=== PATIENT | female | born 1950 | race Caucasian/White ===

== ENCOUNTER → 2017-09-04 15:00 | Outpatient (CLI) | payer MEDICARE, OTHER, SELFPAY | PROVIDERS: Visit Provider Physician Assistant | DX: N39.0 Urinary tract infection, site not specified (principal) | CPT/HCPCS: 87077; 87086; 87186 ==

== ENCOUNTER → 2018-03-28 08:11 | Outpatient (CLI) | payer MEDICARE, OTHER, SELFPAY ==
[2018-03-28 09:29] LABS: BUN Creatinine Ratio 23.3 (6-22); Blood Urea Nitrogen 21 mg/dL (7-17); Calcium 9.1 mg/dL (8.4-10.2); Carbon Dioxide 28 mmol/L (22-32); Chloride 102 mmol/L (98-107); Cholesterol 211 mg/dL (140-199); Estimated Glomerular Filt Rate > 60.0 mL/min (>60); Glucose 79 mg/dL (80-110); HDL Cholesterol 93 mg/dL (40-60); HEMOLYSIS < 15 (0-50); LDL Cholesterol Calculated 104 mg/dL (<100); Potassium 4.4 mmol/L (3.4-5.1); Sodium 139 mmol/L (137-145); Triglycerides 72 mg/dL (35-150)
[2018-03-28 10:15] LABS: Creatinine Urine Random 138.2 mg/dL
[2018-03-28 10:17] LABS: Microalbumin Urine Random 0.7 mg/dL (0-1.6)
== END ==
PROVIDERS: Visit Provider Family Medicine
DX: I10 Essential (primary) hypertension (principal)
CPT/HCPCS: 36415; 80048; 80061; 82043; 82570

== ENCOUNTER → 2018-07-11 14:21 | Outpatient (CLI) | payer MEDICARE, OTHER, SELFPAY ==
--- NOTE | 2018-07-11 14:23 | DI.RAD.S_ITS ---
PROCEDURE: XR CERVICAL SPINE 2V OR 3V INDICATIONS: neck pain TECHNIQUE: 3 view(s) of the cervical spine were acquired. COMPARISON: None. FINDINGS: Bones: No fractures or dislocations to the T1 level. The lateral masses of C1 appear intact on the odontoid view. No suspicious bony lesions. Multilevel degenerative endplate sclerosis and spurring. Diffuse facet arthropathy. Straightening of the normal cervical lordosis. Moderate narrowing of the C4-C5 and C5-C6 disc spaces. There is mild narrowing of the remaining cervical disc spaces. Grade 1 anterolisthesis of C7 on T1 Soft tissues: No prevertebral soft tissue swelling. IMPRESSION: Diffuse cervical spondylosis and facet arthropathy most pronounced at C4-C5 and C5-C6. Grade 1 anterolisthesis of C7 on T1. Straightening of the normal cervical lordosis. Dictated by: Mane Ding M.D. on 07/11/2018 at 15:51 Approved by: Mane Ding M.D. on 07/11/2018 at 15:53
== END ==
PROVIDERS: PCP Family Medicine; Visit Provider Registered Nurse
DX: M54.2 Cervicalgia (principal); M47.812 Spondylosis without myelopathy or radiculopathy, cervical region; M43.13 Spondylolisthesis, cervicothoracic region
CPT/HCPCS: 72040

== ENCOUNTER → 2018-07-23 08:11 | Outpatient (CLI) | payer MEDICARE, OTHER, SELFPAY ==
--- NOTE | 2018-07-23 08:24 | DI.MRI.S_ITS ---
PROCEDURE: MR CERVICAL SPINE WO CON INDICATIONS: Neck pain with radiculopathy TECHNIQUE: Noncontrast sagittal T1 spin echo and T2 fast spin echo, sagittal STIR, foraminal oblique sagittal T2 fast spin echo, and axial gradient echo or T2 fast spin echo through the cervical spine. COMPARISON: [facility], CR, XR CERVICAL SPINE 2V OR 3V, 07/11/2018, 14:24. FINDINGS: Image quality: Excellent. Alignment and Curvature: Mild reversal of the normal cervical lordosis, centered at C5. Trace anterolisthesis of C7 on T1. Bone Marrow: Multilevel degenerative endplate sclerosis and spurring. Diffuse facet arthropathy. Spinal Cord: Visualized spinal cord has normal size and signal. No cerebellar tonsillar herniation. Paraspinous Soft Tissues: No paravertebral masses. Prevertebral soft tissues are normal in thickness. C2-C3: Normal appearance. C3-C4: Bilateral uncovertebral arthropathy and posterior intervening disc osteophyte complex, and bilateral facet disease. No definite central canal narrowing. Mild to moderate left neural foraminal narrowing without nerve root compression. Minimal right neural foraminal narrowing. C4-C5: Bilateral uncovertebral arthropathy and posterior intervening disc osteophyte complex, and bilateral facet disease. No definite central canal narrowing. Mild left foraminal narrowing. Moderate right foraminal stenosis with possible minimal nerve root compression. C5-C6: Bilateral uncovertebral arthropathy and posterior intervening disc osteophyte complex, and bilateral facet disease. Mild central canal narrowing. Mild right foraminal narrowing although presumed 5 mm spinal meningeal cyst on image 4 series 6. There is minimal nerve root compression. Severe left foraminal stenosis or nerve root compression C6-C7: Bilateral uncovertebral arthropathy and posterior intervening disc osteophyte complex, and bilateral facet arthropathy. Minimal canal narrowing. Mild right foraminal narrowing. Moderate to severe left foraminal stenosis with nerve root compression. C7-T1: Bilateral facet arthropathy. No canal narrowing. Mild bilateral foraminal stenoses. IMPRESSION: Multilevel cervical spondylosis and facet disease with reversal of the normal cervical lordosis, centered at C5. Grade 1 anterolisthesis C7 on T1. No high-grade canal stenosis. Diffuse bilateral foraminal narrowing as detailed above, most notably, severe left-sided foraminal stenosis at C5-C6 and C6-C7. Moderate right C4-C5 foraminal narrowing. Dictated by: Mane Ding M.D. on 07/23/2018 at 10:08 Approved by: Mane Ding M.D. on 07/23/2018 at 10:17
== END ==
PROVIDERS: PCP Family Medicine; Visit Provider Registered Nurse
DX: M54.2 Cervicalgia (principal); M47.22 Other spondylosis with radiculopathy, cervical region; M43.13 Spondylolisthesis, cervicothoracic region; M48.02 Spinal stenosis, cervical region
CPT/HCPCS: 72141

== ENCOUNTER → 2018-11-07 12:01 | Outpatient (CLI) | payer MEDICARE, OTHER, SELFPAY ==
--- NOTE | 2018-11-07 12:02 | DI.US.S_ITS ---
PROCEDURE: US PERIPH VENOUS LOW EXTREM LT INDICATIONS: NEW UNILATERAL LEG EDEMA, EVALUATE FOR DVT TECHNIQUE: Real-time imaging, as well as color and pulse Doppler interrogation, were performed of the lower extremity deep veins from the inguinal ligament to the popliteal fossa. COMPARISON: None. FINDINGS: The common femoral, femoral and popliteal veins are normally compressible, and free of intraluminal thrombus. Color and pulse Doppler demonstrate normal phasic intraluminal flow. There is normal augmentation response to distal compression maneuver. Minimal subcutaneous edema is incidentally noted at the level of the ankle. IMPRESSION: No evidence of deep vein thrombosis of the left lower extremity. Dictated by: Ankush Stratton M.D. on 11/07/2018 at 12:40 Approved by: Ankush Stratton M.D. on 11/07/2018 at 12:42
== END ==
PROVIDERS: PCP Family Medicine; Visit Provider Family Medicine
DX: R60.0 Localized edema (principal)
CPT/HCPCS: 93971

== ENCOUNTER → 2021-06-10 10:51 | Outpatient (CLI) | payer MEDICARE, OTHER, SELFPAY | PROVIDERS: PCP Family Medicine; Visit Provider Physician Assistant | DX: N39.0 Urinary tract infection, site not specified (principal) | CPT/HCPCS: 87086 ==

== ENCOUNTER 2022-10-11 17:50 | Emergency (ER) | payer MEDICARE, OTHER, SELFPAY ==
[2022-10-11] VITALS (9 sets, daily range): BP systolic 141–190; BP diastolic 65–84; PULSE 65–75; RESP 15–22; TEMP 37.2; O2SAT 99–100; BMI 21.2
--- NOTE | 2022-10-11 18:18 | DI.CT.S_ITS ---
PROCEDURE: CT ABDOMEN PELVIS W CON INDICATIONS: RLQ pain TECHNIQUE: After the administration of intravenous contrast, axial sections acquired from the lung bases to the pubic symphysis. Coronal and sagittal reformats were performed. For radiation dose reduction, the following was used: automated exposure control, adjustment of mA and/or kV according to patient size. COMPARISON: None. FINDINGS: Image quality: Excellent. Lung bases: Unremarkable. Heart: No significant findings. ABDOMEN: Liver: Unremarkable. Gallbladder: Unremarkable. Biliary ducts: Unremarkable. Pancreas: Unremarkable. Spleen: Unremarkable. Adrenal Glands: Unremarkable. Kidneys and Ureters: Unremarkable. Bowel and peritoneum: A few diverticula are seen in the colon. Bowel wall thickening and inflammatory fat stranding are seen surrounding a diverticulum at the distal sigmoid colon, consistent with acute diverticulitis. No focal fluid collection is seen. No pneumoperitoneum. Mild fecalization of small bowel loops may indicate increased transit time. No signs of bowel obstruction. Normal appendix. Ventral Wall: No hernias. Abdominal Nodes: No retroperitoneal or mesenteric adenopathy by size criteria. Vessels: Aorta and inferior vena cava are normal in size. PELVIS: Pelvic Organs: Unremarkable. Bladder: Unremarkable. Pelvic Nodes: No enlarged lymph nodes. Miscellaneous: No hernias are seen. Bones: Degenerative changes are seen in the spine. IMPRESSION: Acute uncomplicated distal sigmoid diverticulitis. Approved by: Param Casiano M.D. on 10/11/2022 at 19:40
[2022-10-11 18:24] LABS: Add Manual Diff / Slide Review NO; Basophils Absolute Auto 0 /uL (0-100); Basophils Percent Auto 0.4 % (0-2); Eosinophils Absolute Auto 200 /uL (0-450); Eosinophils Percent Auto 1.8 % (2-4); Hematocrit 35.4 % (36-46); Lymphocytes Absolute Auto 1700 /uL (1100-4500); Lymphocytes Percent Auto 20.1 % (25-40); Mean Corpuscular HGB Conc 33.9 % (30-36); Mean Corpuscular Hemoglobin 30.6 PG (26-34); Mean Corpuscular Volume 90.4 fL (80-100); Monocytes Absolute Auto 600 /uL (0-900); Monocytes Percent Auto 6.7 % (3-14); Neutrophils Absolute Auto 6000 /uL (1500-7000); Platelet Count 230 X10^3/uL (150-400); Red Blood Cell Count 3.92 X10^6/uL (4.0-5.2); Red Cell Distribution Width 12.8 % (11.6-14.8); White Blood Cell Count 8.5 X10^3/uL (4.5-11.0)
[2022-10-11 18:25] LABS: Alanine Aminotransferase 30 IU/L (<35); Albumin 4.3 g/dL (3.5-5.0); Albumin Globulin Ratio 1.5 (1.0-2.8); Alkaline Phosphatase 104 U/L (38-126); Aspartate Aminotransferase 40 IU/L (14-36); BUN Creatinine Ratio 17.1 (6-22); Bilirubin Total 0.9 mg/dL (0.2-1.3); Blood Urea Nitrogen 19 mg/dL (7-17); Calcium 8.7 mg/dL (8.4-10.2); Carbon Dioxide 29 mmol/L (22-32); Chloride 102 mmol/L (98-107); Estimated Glomerular Filt Rate 53 mL/min (>60); Globulin 2.9 g/dL (1.7-4.1); Glucose 100 mg/dL (80-110); HEMOLYSIS < 15 (0-50); Lipase 206 U/L (23-300); Potassium 4.4 mmol/L (3.4-5.1); Sodium 136 mmol/L (137-145); Total Protein 7.2 g/dL (6.3-8.2)
--- NOTE | 2022-10-11 19:48 | ED.ABDPAIN ---
HPI - Abdominal Pain General Chief Complaint: Abdominal Pain Stated Complaint: lower right abd pain - sent by [facility] Time Seen by Provider: 10/11/22 18:18 Source: patient Mode of arrival: Ambulatory History of Present Illness HPI narrative: Patient healthy 71-year-old female who presents with right lower quadrant pain that started yesterday. She reports she started having decreasing appetite. She was having some low back pain but thought it was from gardening. She is no flank pain or radiation to her groin. No vomiting no fever or chills. But she does right lower quadrant discomfort. No other symptoms. Related Data Home Medications Medication Instructions Recorded Confirmed conjugated estrogens 0.625 mg/gram vaginal 09/04/17 03/20/22 vaginal cream (Premarin) egppflnxjn-rcihukvobqsfo-ajenqlze 1 cap PO Q4-6H PRN 02/14/18 03/20/22 50 mg-325 mg-40 mg capsule hyoscyamine sulfate 0.125 mg 0.125 mg PO QID PRN bowel spasm 02/17/19 03/20/22 sublingual tablet loperamide-simethicone 2 mg-125 mg 2 tab PO ONCE PRN 02/17/19 03/20/22 tablet (Imodium Multi-Symptom Relief) pimecrolimus 1 % topical cream 1 applictn topical BID 06/01/19 03/20/22 (Elidel) acyclovir 5 % topical ointment 1 applictn topical 6XD PRN 09/15/19 03/20/22 irbesartan 150 mg tablet 300 mg PO DAILY 08/25/20 03/20/22 Previous Rx's Medication Instructions Recorded clopidogrel 75 mg tablet 75 mg PO DAILY #90 tabs 02/14/18 escitalopram oxalate 20 mg tablet See Rx Instructions .Route 11/23/21 .COMPLEX #90 tabs lorazepam 0.5 mg tablet 0.5 mg PO DAILY PRN anxiety #30 05/08/22 tabs zolpidem 5 mg tablet 5 mg PO BEDTIME PRN insomnia #30 05/08/22 tabs ciprofloxacin HCl 500 mg tablet 500 mg PO BID #14 tabs 10/11/22 (Cipro) metronidazole 500 mg tablet 500 mg PO Q8H 7 days #21 tabs 10/11/22 Allergies Allergy/AdvReac Type Severity Reaction Status Date / Time doxycycline Allergy Intermediate facial Verified 10/11/22 18:07 rash cefdinir AdvReac Verified 10/11/22 18:07 Review of Systems Review of Systems ROS Unobtainable: All systems reviewed & are unremarkable except as noted in HPI and below Patient History Medical History (Updated 10/11/22 @ 20:43 by Amanda Shetty DO) Acne (~1979) Anxiety Back problem Chicken pox Depression Frequent UTI GERD (gastroesophageal reflux disease) (~1999) Herpes (~1988) Hypertension (~2003) Irritable bowel syndrome (~2014) Measles Migraines Mumps Positive PPD (~1974) Recurrent sinusitis Rubella Spasm of vocal cords Stroke (~2000) Vertebral artery dissection Vision disorder Surgical History Anesthesia Cataracts, bilateral (~2005) History of laminectomy (~2013) History of nasal septoplasty (~2014) History of tonsillectomy Nephroptosis (~2004) Status post wrist surgery (~2014) Family History Father Heart disease Hyperlipidemia Hypertension Mental health problem Mother Cancer Sister Mental health problem Sister Hyperlipidemia Hypertension Grandfather Cancer Grandmother Stroke Grandmother Mental health problem Social History Smoking Status: Former smoker alcohol intake: current substance use type: does not use Smoking Status: Former smoker alcohol intake frequency: 0-2 drinks per day Substance Use Type: does not use Exam Initial Vital Signs Initial Vital Signs: Vital Signs Temperature 98.9 F 10/11/22 17:58 Pulse Rate 75 10/11/22 17:58 Respiratory Rate 18 10/11/22 17:58 Blood Pressure 190/84 H 10/11/22 17:58 Pulse Oximetry 100 10/11/22 17:58 Oxygen Delivery Method Room Air 10/11/22 17:58 GENERAL: Alert well-appearing very pleasant 71-year-old female and in no acute distress. HEENT: Head atraumatic,EOMI, pupils reactive, face symmetric, moist mucous membranes CARDIOVASCULAR: Regular rate and rhythm without murmurs, rubs or gallops. RESPIRATORY: Breath sounds equal bilaterally, no wheezes rales or rhonchi. ABDOMEN: Soft, right lower quadrant tenderness no guarding no rebound : No CVA tenderness EXTREMITIES: Normal range of motion, no clubbing or edema. Neurovascularly intact NEUROLOGICAL: Alert and oriented x4.Normal gait and speech. SKIN: Warm, dry, no laceration, no petechiae, no rashes or lesions. Course Orders Ordered: ED Orders 10/11/22 18:00 Complete Blood Count AUTO DIFF Stat Comprehensive Metabolic Panel Stat Lipase Stat 10/11/22 18:07 EKG-12 Lead Stat 10/11/22 18:18 CT abdomen pelvis w con Stat Discontinued Medications Ciprofloxacin (Ciprofloxacin 250 Mg Tablet) 500 mg PO NOW ONE Stop: 10/11/22 20:37 Last Admin: 10/11/22 20:40 Dose: 500 mg Documented By: Metronidazole (Metronidazole 500 Mg Tablet) 500 mg PO NOW ONE Stop: 10/11/22 20:37 Last Admin: 10/11/22 20:40 Dose: 500 mg Documented By: Ondansetron HCl (Ondansetron 4 Mg/2 Ml Inj) 4 mg IV NOW PRN PRN Reason: Nausea And Vomiting Vital Signs Vital signs: Vital Signs - 8 hr 10/11/22 17:58 10/11/22 18:05 10/11/22 18:30 Temperature 98.9 F Pulse Rate 75 75 65 Respiratory Rate 18 15 Blood Pressure 190/84 H Pulse Oximetry 100 100 100 Oxygen Delivery Method Room Air 10/11/22 18:31 10/11/22 18:31 10/11/22 18:31 Temperature Pulse Rate 68 Respiratory Rate 22 Blood Pressure 141/65 H 141/65 H Pulse Oximetry 100 Oxygen Delivery Method 10/11/22 19:00 10/11/22 19:30 10/11/22 20:00 Temperature Pulse Rate 67 67 66 Respiratory Rate 15 17 20 Blood Pressure Pulse Oximetry 100 100 99 Oxygen Delivery Method 10/11/22 20:12 10/11/22 20:29 Temperature Pulse Rate 67 Respiratory Rate Blood Pressure 159/79 H Pulse Oximetry 99 Oxygen Delivery Method MDM - Abdominal Pain Lab Data 10/11/22 18:00 10/11/22 18:00 Labs: Lab Results 10/11/22 10/11/22 Range/Units 18:00 18:00 WBC 8.5 (4.5-11.0) X10^3/uL RBC 3.92 L (4.0-5.2) X10^6/uL Hgb 12.0 (12.0-16.0) g/dL Hct 35.4 L (36-46) % MCV 90.4 (80-100) fL MCH 30.6 (26-34) PG MCHC 33.9 (30-36) % RDW 12.8 (11.6-14.8) % Plt Count 230 (150-400) X10^3/uL Neut % (Auto) 71.0 (50-75) % Lymph % (Auto) 20.1 L (25-40) % Sabine % (Auto) 6.7 (3-14) % Eos % (Auto) 1.8 L (2-4) % Baso % (Auto) 0.4 (0-2) % Neut # (Auto) 6000 (9080-1891) /uL Lymph # (Auto) 1700 (9328-7133) /uL Sabine # (Auto) 600 (0-900) /uL Eos # (Auto) 200 (0-450) /uL Baso # (Auto) 0 (0-100) /uL Sodium 136 L (137-145) mmol/L Potassium 4.4 (3.4-5.1) mmol/L Chloride 102 (98-107) mmol/L Carbon Dioxide 29 (22-32) mmol/L BUN 19 H (7-17) mg/dL Creatinine 1.11 H (0.52-1.04) mg/dL Estimated GFR 53 L (>60) mL/min BUN/Creatinine Ratio 17.1 (6-22) Glucose 100 (80-110) mg/dL Calcium 8.7 (8.4-10.2) mg/dL Total Bilirubin 0.9 (0.2-1.3) mg/dL AST 40 H (14-36) IU/L ALT 30 (<35) IU/L Alkaline Phosphatase 104 (38-126) U/L Total Protein 7.2 (6.3-8.2) g/dL Albumin 4.3 (3.5-5.0) g/dL Globulin 2.9 (1.7-4.1) g/dL Albumin/Globulin Ratio 1.5 (1.0-2.8) Lipase 206 (23-300) U/L Point of care testing: Urine Dip Bedside Urine Glucose Negative Bedside Urine Bilirubin - Negative Bedside Urine Ketone - Negative Urine Specific [place] 1.010 Bedside Urine Occult Blood - Negative Bedside Urine pH 6.0 Bedside Urine Protein - Negative Bedside Urine Urobilinogen 0.2 Bedside Urine Nitrite - Negative Bedside Urine Leukocytes - Negative Esterase Imaging Data CT scan - abdomen/pelvis: Radiologist's Impression: PROCEDURE:? CT ABDOMEN PELVIS W CON ? INDICATIONS:? RLQ pain ? TECHNIQUE:? After the administration of intravenous contrast, axial sections acquired from the lung bases to the pubic symphysis.? Coronal and sagittal reformats were performed.? For radiation dose reduction, the following was used:? automated exposure control, adjustment of mA and/or kV according to patient size.? ? COMPARISON:? None. ? FINDINGS:? Image quality:? Excellent.? ? Lung bases:? Unremarkable. Heart:? No significant findings. ? ABDOMEN: Liver:? Unremarkable.? ? Gallbladder:? Unremarkable. Biliary ducts:? Unremarkable.? ? Pancreas:? Unremarkable.? ? Spleen:? Unremarkable.? ? Adrenal Glands:? Unremarkable.? ? Kidneys and Ureters:? Unremarkable.? ? ? Bowel and peritoneum:? A few diverticula are seen in the colon.? Bowel wall thickening and inflammatory fat stranding are seen surrounding a diverticulum at the distal sigmoid colon, consistent with acute diverticulitis.? No focal fluid collection is seen.? No pneumoperitoneum.? Mild fecalization of small bowel loops may indicate increased transit time.? No signs of bowel obstruction.? Normal appendix. ? Ventral Wall: ? No hernias.? Abdominal Nodes:? No retroperitoneal or mesenteric adenopathy by size criteria.? Vessels:? Aorta and inferior vena cava are normal in size.? ? PELVIS: Pelvic Organs:? Unremarkable.? ? Bladder:? Unremarkable.? ? Pelvic Nodes: No enlarged lymph nodes.? Miscellaneous: No hernias are seen. ? ? ? Bones:? Degenerative changes are seen in the spine. ? IMPRESSION:? Acute uncomplicated distal sigmoid diverticulitis. ? ? ? Approved by: Param Casiano M.D. on 10/11/2022 at 19:40? ECG Data Interpretation: Normal sinus rhythm rate 75 AL interval 1 6 QRS 84 QTC 424 MDM Narrative Medical decision making narrative: Patient healthy 71-year-old female presents today quadrant pain no significant leukocytosis. Other blood work has been reviewed creatinine today is 1.1 previously 0.9, the rest does not show any clinical significant abnormality CT confirms uncomplicated sigmoid diverticulitis no appendicitis. Given 1st doses of Cipro and Flagyl here. She reports that she has been eating quite a bit of popcorn lately. She is not requiring anything for pain. Discharge Plan Departure Patient Disposition: Home Clinical Impression: Diverticulitis Instructions: DI for Diverticulitis Activity Restrictions/Additional Instructions: *You have been diagnosed with diverticulitis *What to do: You may have to adjust her diet a little bit temporarily try a low-fiber diet while this is healing and then resume high-fiber diet. *Continue to take medications as directed Cipro 500 mg twice a day for 7 days Flagyl 500 mg 3 times a day for 7 days Tylenol Motrin as directed if needed for pain *Follow up with your primary care provider in 2-3 days or call [phone] *Return to ER if you should have increasing pain bloody stool persistent vomiting unable to tolerate liquids or any new, worsening or concerning symptoms Prescriptions: New metronidazole 500 mg tablet 500 mg PO Q8H 7 Days Qty: 21 0RF ciprofloxacin HCl [Cipro] 500 mg tablet 500 mg PO BID Qty: 14 0RF No Action conjugated estrogens [Premarin] 0.625 mg/gram cream VAG Imodium Multi-Symptom Relief 2-125 mg tablet 2 tab PO ONCE PRN lorazepam 0.5 mg tablet 0.5 mg PO DAILY PRN (Reason: anxiety) Qty: 30 3RF zolpidem 5 mg tablet 5 mg PO BEDTIME PRN (Reason: insomnia) Qty: 30 2RF Rx Instructions: Take 1 tab by mouth each night for sleep. pimecrolimus [Elidel] 1 % cream 1 applictn TOP BID irbesartan 150 mg tablet 300 mg PO DAILY escitalopram oxalate 20 mg tablet See Rx Instructions .ROUTE .COMPLEX Qty: 90 3RF Dose Instruction: TAKE 1 TABLET BY MOUTH DAILY Rx Instructions: TAKE 1 TABLET BY MOUTH DAILY ouguivjydo-oupnqnulavpil-wzrr 50-325-40 mg capsule 1 cap PO Q4-6H PRN clopidogrel 75 mg tablet 75 mg PO DAILY Qty: 90 2RF hyoscyamine sulfate 0.125 mg tablet, sublingual 0.125 mg PO QID PRN (Reason: bowel spasm) acyclovir 5 % ointment 1 applictn TOP 6XD PRN Referrals: Rula Fair MD [Primary Care Provider] - Stand Alone Forms: Patient Portal/API
[2022-10-11] MEDS: metroNIDAZOLE 500 MG TABLET PO (20:40)
[2022-10-11] MEDS: CIPROFLOXACIN 250 MG TABLET 500 MG PO (20:40)
== END 2022-10-11 20:47 | disposition home or self-care (01) ==
PROVIDERS: Emergency Provider Emergency Medicine; PCP Family Medicine
DX: K57.92 Diverticulitis of intestine, part unspecified, without perforation or abscess without bleeding (principal); R10.31 Right lower quadrant pain
CPT/HCPCS: 36415; 74177; 80053; 81003; 83690; 85025; 93005; 99284; Q9967

== ENCOUNTER → 2023-10-27 09:38 | Outpatient (CLI) | payer MEDICARE, OTHER, SELFPAY | PROVIDERS: PCP Family Medicine; Visit Provider Registered Nurse | DX: R10.9 Unspecified abdominal pain (principal) | CPT/HCPCS: 87077; 87086; 87186 ==

== ENCOUNTER → 2024-04-30 12:29 | Outpatient (CLI) | payer MEDICARE, OTHER, SELFPAY ==
--- NOTE | 2024-04-30 12:31 | DI.ECHO.S_ITS ---
[facility] : : [address] : : [place] : : [id number] : : Phone: [phone] Echocardiogram Report + + :Name: MAYUR DIAL Study Date: 04/30/2024 Height: 67 in : :[facility] ReadingLocation: Weight: 150 lb : : Gender: Female BSA: 1.8 m2 : :: 1950 Age: 73 yrs BP: 145/97 mmHg: :Reason For Study: CHEST PAIN : :Ordering Physician: : :RADHA QUIGLEY Performed By: Mauro Escalera : :Referring: RADHA QUIGLEY : + + Interpretation Summary The ejection fraction is estimated to be 55-60%. Diastolic parameters suggest probable normal left ventricular diastolic function and normal filling pressures. The right ventricle is normal in size and function. There is borderline mitral valve prolapse. There is mild mitral regurgitation. Pulmonary artery pressures cannot be estimated because of the lack of a measurable TR jet velocity but the IVC suggests a CVP of around 8 mmHg. Procedure: A two-dimensional transthoracic echocardiogram with color flow and Doppler was performed. The study quality was technically good. There is no prior echocardiogram noted for this patient. The patient was in normal sinus rhythm during the exam. Left Ventricle: The left ventricle is normal in size. There is normal left ventricular wall thickness. There is no ventricular septal defect visualized. The ejection fraction is estimated to be 55-60%. There are no focal wall motion abnormalities. Diastolic parameters suggest probable normal left ventricular diastolic function and normal filling pressures. Right Ventricle: The right ventricle is normal in size and function. Atria: The left atrial size is normal. Right atrial size is normal. There is no Doppler evidence for an interatrial shunt. Mitral Valve: The mitral valve leaflets appear mildly thickened, but open well. There is borderline mitral valve prolapse. There is mild mitral regurgitation. Aortic Valve: The aortic valve is trileaflet. The aortic valve is slightly calcified. The aortic valve opens well. There is no aortic valve stenosis. No aortic regurgitation is present. Tricuspid Valve: The tricuspid valve leaflets are thin and pliable. There is trace tricuspid regurgitation. Pulmonary artery pressures cannot be estimated because of the lack of a measurable TR jet velocity but the IVC suggests a CVP of around 8 mmHg. Pulmonic Valve: The pulmonic valve leaflets are thin and pliable; valve motion is normal. There is no pulmonic valvular regurgitation. Great Vessels: The aortic root is normal size. The dimensions of the ascending aorta are normal. The pulmonary artery is normal size. The IVC is dilated (diameter is greater than 2.1 cm) yet it collapses greater than 50% with a sniff. This suggests a right atrial pressure of 8 mm Hg. Pericardium/ Pleura There is no pericardial effusion. There is no pleural effusion. MMode/2D Measurements & Calculations LVIDd: 4.4 cm LVOT diam: 2.0 cm LVIDs: 2.7 cm Ao root diam: 2.7 cm FS: 38.4 % asc Aorta Diam: 3.0 cm EPSS: 0.58 cm Ao Arch Diam (Prox Trans): 1.6 cm IVSd: 0.84 cm LVPWd: 0.66 cm LV colon. diameter/BSA (cm/m^2): 2.4 LV sys. diameter/BSA (cm/m^2): 1.5 LA A2 area: 20.6 cm2 RA long axis: 4.3 cm LA A4 area: 15.5 cm2 RA area: 10.9 cm2 LA length (vol): 4.7 cm RA vol: 23.2 ml LA vol: 57.9 ml RA : 13.0 ml/m2 LA vol index: 32.4 ml/m2 IVC diam: 2.1 cm RVD1 (basal): 3.4 cm RVD2 (mid): 2.6 cm TAPSE: 3.3 cm Doppler Measurements & Calculations Ao V2 max: 116.1 cm/sec LVOT Max Antony: 88.2 cm/sec Ao V2 mean: 84.5 cm/sec LV V1 max P.1 mmHg Ao max P.4 mmHg LV V1 VTI: 21.6 cm Ao mean P.1 mmHg NARESH(I,D): 2.4 cm2 Ao V2 VTI: 26.7 cm NARESH(V,D): 2.3 cm2 sev ratio: 0.81 NARESH indexed to BSA (cm^2/m^2): 1.4 MV E max antony: 72.1 cm/sec TR max antony: 242.0 cm/sec MV A max antony: 62.7 cm/sec TR max P.4 mmHg MV E/A: 1.2 PA V2 max: 76.8 cm/sec Med Peak E' Antony: 7.1 cm/sec PA V2 mean: 54.5 cm/sec E/E' med: 10.1 PA mean P.3 mmHg Lat Peak E' Antony: 8.5 cm/sec PA pr(Accel): -3.2 mmHg E/E' lat: 8.5 E/e' average: 9.3 MV dec time: 0.19 sec SV([facility]): 64.8 ml Reading Physician:03:03 PM
== END ==
PROVIDERS: PCP Family Medicine; Referring Provider Internal Medicine Cardiovascular Disease; Visit Provider Internal Medicine Cardiovascular Disease
DX: I34.0 Nonrheumatic mitral (valve) insufficiency (principal); R07.9 Chest pain, unspecified
CPT/HCPCS: 93306

== ENCOUNTER → 2024-06-04 07:07 | Outpatient (CLI) | payer MEDICARE, OTHER, SELFPAY ==
[2024-06-04 07:52] LABS: Hematocrit 37.6 % (36-46); Hemoglobin 12.9 g/dL (12.0-16.0); Mean Corpuscular HGB Conc 34.4 % (30-36); Mean Corpuscular Hemoglobin 31.3 PG (26-34); Mean Corpuscular Volume 90.9 fL (80-100); Platelet Count 256 X10^3/uL (150-400); Red Blood Cell Count 4.14 X10^6/uL (4.0-5.2); Red Cell Distribution Width 12.7 % (11.6-14.8); White Blood Cell Count 3.7 X10^3/uL (4.5-11.0)
[2024-06-04 08:16] LABS: Hemoglobin A1C% w Est Avg Glu 4.9 % (4.0-6.0)
[2024-06-04 08:24] LABS: Cholesterol 220 mg/dL (140-199); HDL Cholesterol 94 mg/dL (40-60); LDL Cholesterol Calculated 110 mg/dL (<100); Triglycerides 82 mg/dL (35-150)
== END ==
PROVIDERS: PCP Family Medicine; Referring Provider Internal Medicine Cardiovascular Disease; Visit Provider Internal Medicine Cardiovascular Disease
DX: R07.9 Chest pain, unspecified (principal); Z13.1 Encounter for screening for diabetes mellitus; Z13.220 Encounter for screening for lipoid disorders
CPT/HCPCS: 36415; 80061; 83036; 85027

== ENCOUNTER 2025-01-19 13:50 | Emergency (ER) | payer MEDICARE, OTHER, SELFPAY ==
[2025-01-19 13:54] VITALS: BP 146/65; PULSE 83; RESP 17; TEMP 36.1; O2SAT 98; BMI 22.0
--- NOTE | 2025-01-19 13:59 | DI.US.S_ITS ---
PROCEDURE: US PERIPH VENOUS LOW EXTREM RT
--- NOTE | 2025-01-19 15:08 | ED_ITS ---
HPI - Extremity Problem
--- NOTE | 2025-01-19 15:08 | ED.EXTPRO ---
HPI - Extremity Problem <Taye Trinidad PA-C - Last Filed: 01/19/25 15:20> General Chief complaint: Extremity Problem,Nontraumatic Stated complaint: Sent from [facility] rule out DVT Time Seen by Provider: 01/19/25 13:59 Source: patient Mode of arrival: Ambulatory History of Present Illness HPI Narrative: 74-year-old female presents to the ED with 2 days of right lower leg pain in the calf region. 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 Patient went off the Plavix 1 week ago in order to obtain a colonoscopy and endoscopy. Patient restarted the Plavix yesterday. The calf pain started 2 days ago. No chest pain, shortness of breath, fever, chills, lightheadedness, dizziness, syncope. Patient is able to bear weight and walk. Patient did say that she stepped wrong a few days ago that could have caused he muscular strain. Related Data Home Medications ?Medication ?Instructions ?Recorded ?Confirmed conjugated estrogens 0.625 mg/gram vaginal 09/04/17 12/01/23 vaginal cream (Premarin) iadyxrgynx-wgkeuhgsbqasl-qxrpcagv 1 cap PO Q4-6H PRN 02/14/18 12/01/23 50 mg-325 mg-40 mg capsule hyoscyamine sulfate 0.125 mg 0.125 mg PO QID PRN bowel spasm 02/17/19 12/01/23 sublingual tablet loperamide 2 mg-simethicone 125 mg 2 tab PO ONCE PRN 02/17/19 12/01/23 tablet (Imodium Multi-Symptom Relief) pimecrolimus 1 % topical cream 1 applictn topical BID 06/01/19 12/01/23 (Elidel) acyclovir 5 % topical ointment 1 applictn topical 6XD PRN 09/15/19 12/01/23 irbesartan 150 mg tablet 300 mg PO DAILY 08/25/20 12/01/23 gabapentin 300 mg capsule 300 mg PO DAILY 10/07/23 12/01/23 Previous Rx's ?Medication ?Instructions ?Recorded clopidogrel 75 mg tablet 75 mg PO DAILY #90 tabs 02/14/18 ciprofloxacin HCl 500 mg tablet 500 mg PO BID #14 tabs 10/11/22 (Cipro) nirmatrelvir 150 mg (10)-ritonavir See Rx Instructions PO PER PKG DIR 12/01/23 100 mg (10) tablets in a dose pack #20 ea (Paxlovid) escitalopram oxalate 20 mg tablet See Rx Instructions .Route 08/25/24 .COMPLEX #90 tabs zolpidem 5 mg tablet 5 mg PO BEDTIME PRN insomnia #30 09/21/24 tabs lorazepam 0.5 mg tablet 0.5 mg PO DAILY PRN anxiety #30 11/19/24 tabs Allergies Allergy/AdvReac Type Severity Reaction Status Date / Time doxycycline AdvReac Intermediate facial Verified 01/19/25 13:54 rash cefdinir AdvReac Diarrhea Verified 01/19/25 13:54 ciprofloxacin (From Cipro) AdvReac Rash Verified 01/19/25 13:54 Review of Systems <Taye Trinidad PA-C - Last Filed: 01/19/25 15:20> Constitutional Constitutional: Denies chills, Denies fatigue, Denies fever(s), Denies frequent falls, Denies lethargy and Denies weakness Eyes Eyes: Denies change in vision, Denies eye discharge, Denies irritation and Denies loss of vision ENT Ears, Nose, Mouth, and Throat: Denies change in voice, Denies dizziness, Denies neck pain, Denies sore throat and Denies throat swelling Cardiovascular Cardiovascular: Denies chest pain, Denies irregular heart rhythm, Denies lightheadedness, Denies palpitations, Denies dyspnea, Denies dyspnea on exertion and Denies orthopnea Respiratory Respiratory: Denies cough, Denies dyspnea, Denies dyspnea on exertion and Denies wheezing Gastrointestinal Gastrointestinal: Denies abdominal pain, Denies change in bowel habits, Denies diarrhea, Denies nausea and Denies vomiting Musculoskeletal Musculoskeletal: Denies neck pain and Denies numbness Comments: Right calf pain Integumentary/Breasts Skin/Breast: Denies pruritus, Denies erythema, Denies rash and Denies wounds Neurologic Neurologic: Denies behavioral changes, Denies confusion, Denies dizziness, Denies frequent falls, Denies loss of vision, Denies numbness and Denies weakness Psychiatric Psychiatric: Denies anxiety, Denies behavioral changes, Denies confusion, Denies depression, Denies homicidal ideation and Denies suicidal ideation Endocrine Endocrine: Denies fatigue, Denies flushing and Denies palpitations Hematologic/Lymphatic Hematologic/Lymphatic: Denies easy bruising Allergic/Immunologic Allergic/Immunologic: Denies urticaria, Denies throat swelling and Denies wheezing Patient History <Taye Trinidad PA-C - Last Filed: 01/19/25 15:20> Medical History (Updated 01/19/25 @ 15:04 by Taye Trinidad PA-C) Vertebral artery dissection Vision disorder Acne (~1979) Depression Anxiety Stroke (~2000) Migraines Back problem Rubella Positive PPD (~1974) Mumps Measles Chicken pox Spasm of vocal cords Recurrent sinusitis Herpes (~1988) Frequent UTI Irritable bowel syndrome (~2014) GERD (gastroesophageal reflux disease) (~1999) Hypertension (~2003) Surgical History Anesthesia History of nasal septoplasty (~2014) Status post wrist surgery (~2014) History of laminectomy (~2013) History of tonsillectomy Cataracts, bilateral (~2005) Nephroptosis (~2004) Family History Father Heart disease Hyperlipidemia Hypertension Mental health problem Mother Cancer Sister Mental health problem Sister Hyperlipidemia Hypertension Grandfather Cancer Grandmother Stroke Grandmother Mental health problem Social History Smoking Status: Never smoker alcohol intake: current substance use type: does not use Smoking Status: Never smoker alcohol intake frequency: 0-2 drinks per day Alcohol type: wine Exam <Taye Trinidad PA-C - Last Filed: 01/19/25 15:20> Narrative Exam Narrative: Const General:?cooperative, healthy appearing and comfortable [facility] Head:?normal to inspection Ears:?hearing grossly normal bilaterally Nose:?external nose normal Face and sinus:?normal facial exam and sinuses nontender Mouth:?oral mucosae normal Throat:?posterior oropharynx normal Eyes General:?appearance normal, both eyes and all related structures Neck Neck:?normal visual inspection and no lymphadenopathy noted Resp Effort & Inspection:?normal respiratory effort Auscultation:?clear to auscultation bilaterally Cardio Rate:?regular rate Rhythm:?regular rhythm Musculoskeletal There is tenderness to palpation of the right mid calf. No bruising, deformities. Gait is normal. Neurovascularly intact. Neuro General:?patient alert, patient awake and patient oriented x3 Initial Vital Signs Initial Vital Signs: Vital Signs Temperature 97.0 F L 01/19/25 13:54 Pulse Rate 83 01/19/25 13:54 Respiratory Rate 17 01/19/25 13:54 Blood Pressure 146/65 H 01/19/25 13:54 Pulse Oximetry 98 01/19/25 13:54 Oxygen Delivery Method Room Air 01/19/25 13:54 <Rula Vallecillo DO - Last Filed: 01/19/25 15:51> Initial Vital Signs Initial Vital Signs: Vital Signs Temperature 97.0 F L 01/19/25 13:54 Pulse Rate 83 01/19/25 13:54 Respiratory Rate 17 01/19/25 13:54 Blood Pressure 146/65 H 01/19/25 13:54 Pulse Oximetry 98 01/19/25 13:54 Oxygen Delivery Method Room Air 01/19/25 13:54 Course <Taye Trinidad PA-C - Last Filed: 01/19/25 15:20> Orders Ordered: ED Orders 01/19/25 13:59 US periph venous low extrem rt Stat Vital Signs Vital signs: Vital Signs - 8 hr 01/19/25 13:54 Temperature 97.0 F L Pulse Rate 83 Respiratory Rate 17 Blood Pressure 146/65 H Pulse Oximetry 98 Oxygen Delivery Method Room Air <Rula Vallecillo DO - Last Filed: 01/19/25 15:51> Orders Ordered: ED Orders 01/19/25 13:59 US periph venous low extrem rt Stat Vital Signs Vital signs: Vital Signs - 8 hr 01/19/25 13:54 Temperature 97.0 F L Pulse Rate 83 Respiratory Rate 17 Blood Pressure 146/65 H Pulse Oximetry 98 Oxygen Delivery Method Room Air MDM - Extremity (Nontraumatic) <Taye Trinidad PA-C - Last Filed: 01/19/25 15:20> MDM Narrative Medical decision making narrative: 74-year-old female presents to the ED with 2 days of right lower leg pain in the calf region. Ultrasound was obtained to rule out a DVT. Ultrasound without acute findings. Discussed findings with patient. Patient's symptoms most consistent with a musculoskeletal sprain/strain. Recommend supportive care with Tylenol, lidocaine patches, heat packs. Recommend follow-up with PCP if symptoms do not resolve. ED return precautions discussed with patient. Patient verbalized understanding. Medical records reviewed: Yes Discharge Plan Departure Patient Disposition: Home Clinical Impression: Pain in right leg Instructions: DI for Leg Pain Activity Restrictions/Additional Instructions: You were evaluated in the emergency department today for right-sided lower leg pain. The ultrasound was normal, no findings of DVT/blood clot. Your symptoms are likely due to a musculoskeletal sprain/strain. You may take Tylenol, apply heat and lidocaine patches for relief. Please follow-up with your PCP as soon as possible. Return to the ED if you have worsening symptoms, chest pain, shortness of breath. Prescriptions: No Action conjugated estrogens [Premarin] 0.625 mg/gram cream VAG Imodium Multi-Symptom Relief 2-125 mg tablet 2 tab PO ONCE PRN Paxlovid 150-100 mg tablets,dose pack See Rx Instructions PO PER PKG DIR Qty: 20 0RF Rx Instructions: PO PER PKG DIR lorazepam 0.5 mg tablet 0.5 mg PO DAILY PRN (Reason: anxiety) Qty: 30 3RF pimecrolimus [Elidel] 1 % cream 1 applictn TOP BID irbesartan 150 mg tablet 300 mg PO DAILY gabapentin 300 mg capsule 300 mg PO DAILY escitalopram oxalate 20 mg tablet See Rx Instructions .ROUTE .COMPLEX Qty: 90 3RF Dose Instruction: TAKE 1 TABLET BY MOUTH DAILY Rx Instructions: TAKE 1 TABLET BY MOUTH DAILY zolpidem 5 mg tablet 5 mg PO BEDTIME PRN (Reason: insomnia) Qty: 30 3RF Rx Instructions: Take 1 tab by mouth each night for sleep. imcyvvualm-apvxybtswvjuv-zbch 50-325-40 mg capsule 1 cap PO Q4-6H PRN clopidogrel 75 mg tablet 75 mg PO DAILY Qty: 90 2RF hyoscyamine sulfate 0.125 mg tablet, sublingual 0.125 mg PO QID PRN (Reason: bowel spasm) acyclovir 5 % ointment 1 applictn TOP 6XD PRN ciprofloxacin HCl [Cipro] 500 mg tablet 500 mg PO BID Qty: 14 0RF Referrals: Rula Fair MD [Primary Care Provider, Family Practice] Stand Alone Forms: Patient Portal/API ED Sign-out <Rula Vallecillo DO - Last Filed: 01/19/25 15:51> Cosign ED Attending Cosignature Attestation: I was immediately available in the department for consultation.
== END 2025-01-19 15:12 | disposition home or self-care (01) ==
PROVIDERS: Emergency Provider Student in an Organized Health Care Education/Training Program; PCP Family Medicine
DX: M79.604 Pain in right leg (principal); Z79.01 Long term (current) use of anticoagulants
CPT/HCPCS: 93971; 99281; 99283

== ENCOUNTER → 2025-02-08 08:32 | Outpatient (CLI) | payer MEDICARE, OTHER, SELFPAY ==
--- NOTE | 2025-02-08 08:34 | DI.MRI.S_ITS ---
PROCEDURE: MR LUMBAR SPINE WO CON INDICATIONS: lumbar radiculopathy TECHNIQUE: Noncontrast sagittal T1 spin echo and T2 fast echo, sagittal STIR, and T2 fast spin echo through the lumbar spine. In cases with scoliosis, additional coronal T2 fast spin echo may be performed. COMPARISON: [facility], MR, MR LUMBAR SPINE WITHOUT CONTRAST, 08/17/2023, 15:25. [facility], CR, XR LUMBAR SPINE WITH FLEXION EXTENSION 5 VIEWS, 08/02/2023, 9:24. FINDINGS: Image quality: Excellent. Alignment and Curvature: 5 lumbar type vertebral bodies are present by plain film. Loss of normal lumbar lordosis. 2 mm of retrolisthesis of L5 on S1. Bone Marrow: Marrow is of normal overall signal. No acute vertebral body compression fractures. Moderate reactive signal within the endplates adjacent to the L2-L3 and L3-L4 intervertebral discs. Mild reactive signal within the remaining lumbar and lower thoracic endplates. Spinal Cord: Conus medullaris terminates at the lower L1 level. Visualized cord demonstrates normal signal and size. Paraspinous Soft Tissues: No paravertebral masses. T12-L1: Normal appearance. L1-L2: Mild disc desiccation and diffuse disc bulge. Mild facet hypertrophy. Mild epidural lipomatosis. Mild canal stenosis. Mild bilateral foraminal stenosis. No significant change. L2-L3: Severe disc height loss and desiccation. Mild diffuse disc bulge/osteophyte with superimposed right far lateral protrusion/osteophyte. Mild bilateral facet hypertrophy. Mild epidural lipomatosis. Mild canal stenosis. Mild right greater than left foraminal stenosis. No significant change. L3-L4: Severe disc height loss and desiccation. Mild diffuse disc bulge. Mild bilateral facet and ligamentum flavum hypertrophy. Mild epidural lipomatosis. Mild canal stenosis. Moderate left and mild right foraminal stenosis. No significant change. L4-L5: Moderate disc height loss and desiccation. Mild diffuse disc bulge with superimposed left far lateral broad-based protrusion. Mild bilateral facet and ligamentum flavum hypertrophy. Mild canal stenosis. Mild right and moderate left foraminal stenosis. No significant change. L5-S1: Moderate disc height loss and desiccation. Mild diffuse disc bulge with superimposed right far lateral broad-based protrusion. Mild bilateral facet hypertrophy. Mild canal stenosis. Severe right and moderate left foraminal stenosis. Right L5 nerve root compression. No significant change. IMPRESSION: 1. Multilevel degenerative disc and facet disease, as well as ligamentum flavum hypertrophy and epidural lipomatosis. 2. Mild multilevel canal stenoses. 3. Multilevel foraminal stenoses, worst at L5-S1 where there is associated intraforaminal nerve root compression. Recommend correlation with clinical symptoms to ascertain relevance of this finding. Dictated by: John Lopes M.D. on 02/08/2025 at 10:28 Approved by: John Lopes M.D. on 02/08/2025 at 10:36
== END ==
LOC: MRI 08:33
PROVIDERS: Family Provider Family Medicine; PCP Family Medicine; Referring Provider Orthopaedic Surgery Orthopaedic Surgery of the Spine; Visit Provider Orthopaedic Surgery Orthopaedic Surgery of the Spine
DX: M51.16 Intervertebral disc disorders with radiculopathy, lumbar region (principal); M51.17 Intervertebral disc disorders with radiculopathy, lumbosacral region; M48.061 Spinal stenosis, lumbar region without neurogenic claudication; M48.07 Spinal stenosis, lumbosacral region; M47.26 Other spondylosis with radiculopathy, lumbar region; M47.27 Other spondylosis with radiculopathy, lumbosacral region; E88.2 Lipomatosis, not elsewhere classified
CPT/HCPCS: 72148

== ENCOUNTER → 2025-03-04 14:34 | Outpatient (CLI) | payer MEDICARE, OTHER, SELFPAY | LOC: PHYS 14:36 | PROVIDERS: PCP Family Medicine; Referring Provider Orthopaedic Surgery Orthopaedic Surgery of the Spine; Visit Provider Orthopaedic Surgery Orthopaedic Surgery of the Spine | DX: R20.0 Anesthesia of skin (principal); R20.2 Paresthesia of skin | CPT/HCPCS: 95885; 95886; 95912 ==